=== PATIENT | female | born 1955 | race Caucasian/White ===

== ENCOUNTER 2019-02-25 00:58 | Emergency (ER) | payer OTHER ==
[~2019-02-25] VITALS: Ht 152.4 cm; Wt 87.4 kg
[2019-02-25 01:02] VITALS: Ht 152.4 cm; Wt 87.4 kg
--- NOTE | 2019-02-25 03:09 | ERD ---
ER Documentation Chief Complaint Chief Complaint right leg pain x1 week radiates to knee HPI Is a very pleasant 64-year-old female with right leg pain and right foot along with the right extremity. She denies fevers chills nausea vomiting pain is mild to moderate intensity but denies any leg swelling. Denies recent travel. Denie s direct trauma. Denies any other current complaints. ROS All systems reviewed and are negative except as per history of present illness. PMhx/Soc History of Surgery: Yes (RIGHT LEG SX) Anesthesia Reaction: No Hx Neurological Disorder: No Hx Respiratory Disorders: No Hx Cardiac Disorders: Yes (HTN) Hx Psychiatric Problems: No Hx Miscellaneous Medical Probl: Yes (THYROID) Hx Alcohol Use: No Hx Substance Use: No Hx Tobacco Use: No Smoking Status: Never smoker Physical Exam Vitals Vital Signs Date Temp Pulse Resp B/P (MAP) Pulse Ox O2 O2 Flow FiO2 Time Delivery Rate 02/25/19 77 19 226/95 97 Room Air 01:29 (138) 02/25/19 97.5 174 21 224/147 01:02 (172) Physical Exam Const: No acute distress Head: Atraumatic Eyes: Normal Conjunctiva ENT: Normal External Ears, Nose and Mouth. Neck: Full range of motion. No meningismus. Resp: Clear to auscultation bilaterally Cardio: Regular rate and rhythm, no murmurs Abd: Soft, non tender, non distended. Normal bowel sounds Skin: No petechiae or rashes Back: No midline or flank tenderness Ext: No cyanosis, or edema Neur: Awake and alert Psych: Normal Mood and Affect Result Diagram: 02/25/19 0127 02/25/19 0127 Results 24 hrs Laboratory Tests Test 02/25/19 01:27 White Blood Count 8.8 10^3/ul Red Blood Count 5.05 10^6/ul Hemoglobin 14.7 g/dl Hematocrit 45.7 % Mean Corpuscular Volume 90.5 fl Mean Corpuscular Hemoglobin 29.1 pg Mean Corpuscular Hemoglobin Concent 32.2 g/dl Red Cell Distribution Width 13.1 % Platelet Count 243 10^3/UL Mean Platelet Volume 9.8 fl Immature Granulocytes % 0.300 % Neutrophils % 46.3 % Lymphocytes % 44.5 % Monocytes % 6.5 % Eosinophils % 1.5 % Basophils % 0.9 % Nucleated Red Blood Cells % 0.0 /100WBC Immature Granulocytes # 0.030 10^3/ul Neutrophils # 4.1 10^3/ul Lymphocytes # 3.9 10^3/ul Monocytes # 0.6 10^3/ul Eosinophils # 0.1 10^3/ul Basophils # 0.1 10^3/ul Nucleated Red Blood Cells # 0.0 10^3/ul Prothrombin Time 11.8 Sec Prothrombin Time Ratio 0.9 INR International Normalized Ratio 0.86 Activated Partial Thromboplast Time 27.6 Sec Sodium Level 143 mmol/L Potassium Level 4.5 mmol/L Chloride Level 105 mmol/L Carbon Dioxide Level 30 mmol/L Anion Gap 8 Blood Urea Nitrogen 29 mg/dl Creatinine 0.84 mg/dl Est Glomerular Filtrat Rate mL/min > 60 mL/min Glucose Level 165 mg/dl Calcium Level 9.0 mg/dl Total Bilirubin 0.3 mg/dl Direct Bilirubin 0.00 mg/dl Indirect Bilirubin 0.3 mg/dl Aspartate Amino Transf (AST/SGOT) 130 IU/L Alanine Aminotransferase (ALT/SGPT) 61 IU/L Alkaline Phosphatase 138 IU/L Troponin I < 0.012 ng/ml B-Type Natriuretic Peptide 586 PG/ML Total Protein 8.0 g/dl Albumin 4.2 g/dl Globulin 3.80 g/dl Albumin/Globulin Ratio 1.10 Procedures/MDM EKG: Rate/Rhythm: [Normal Sinus Rhythm] QRS, ST, T-waves: [No changes consistent w/ acute ischemia] Impression: [No evidence of ischemia or arrhythmia] X-ray Hip 2V Interpreted by me: Bones: [No fracture] Joints: [No dislocation] Foreign body: [None] Chest X-ray 1V Interpreted by me: Soft Tissue: No acute abnormalities Bones: No acute abnormalities Mediastinum/Cardiac Silhouette/Lungs: [No acute abnormalities] DVT study is negative Medical decision making: Very pleasant patient comes in with right lower extremity pain. No evidence of DVT or fracture. Stable for trial of outpatient management. Departure Diagnosis: Primary Impression: Pain of right leg Condition: Stable ALCIDES CHEEK Feb 25, 2019 03:09
[2019-02-25] MEDS ORDERED: DIAZ5TAB PO (03:14)
[2019-02-25] MEDS ORDERED: NAPR-985 PO (03:14)
[2019-02-25 03:34] VITALS: BP 190/82; PULSE 69; RESP 17
== END 2019-02-25 03:35 | disposition home or self-care (01) ==
LOC: E/R 00:58
DX: M79.604 Pain in right leg (principal); I10 Essential (primary) hypertension
CPT/HCPCS: 36415; 71045; 73510; 80053; 83880; 84484; 85025; 85610; 85730; 93005; 93971; Z7502